=== PATIENT | male | born 2000 | race Caucasian/White ===

== ENCOUNTER 2023-12-25 14:36 | Emergency (ER) | payer OTHER, SELFPAY ==
--- NOTE | ~2023-12-25 | XR_ITS ---
EXAMINATION: XR CHEST 3:06 PM CLINICAL INFORMATION: Chest pain COMPARISON: None available. TECHNIQUE: Frontal view of the chest was obtained. FINDINGS: No significant abnormality is noted involving the heart, lungs, mediastinum, bony thorax or soft tissues. XR/XR chest 1V IMPRESSION: Unremarkable examination.
[2023-12-25 14:44] VITALS: BP 106/60; PULSE 58; O2SAT 99
[2023-12-25 14:56] VITALS: BP 107/60; BP 97/54; PULSE 48; PULSE 58; RESP 18; TEMP 36.7; O2SAT 98; O2SAT 99; BMI 18.4
[2023-12-25 15:04] VITALS: BP 97/54; PULSE 48; RESP 18; TEMP 36.7; O2SAT 98
--- NOTE | 2023-12-25 15:04 | ECG_ITS ---
Test Reason : LOW HEART RATE Blood Pressure : / mmHG Vent. Rate : 044 BPM Atrial Rate : 044 BPM P-R Int : 120 ms QRS Dur : 076 ms QT Int : 468 ms P-R-T Axes : 058 085 079 degrees QTc Int : 400 ms Marked sinus bradycardia Abnormal ECG No previous ECGs available Referred By: Bina Rodriguez Electronically Signed By:CELESTE QUINONES MD
--- NOTE | 2023-12-25 15:04 | PC.NURSE ---
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
[2023-12-25 15:14] VITALS: RESP 17
[2023-12-25] MEDS: fentaNYL citrate/PF 100 MCG/2 ML VIAL 25 MCG IVPUSH (15:14)
[2023-12-25] MEDS: droPERidol 5 MG/2 ML VIAL 1.25 MG IVPUSH (15:15)
[2023-12-25] MEDS: 0.9 % Sodium Chloride 1,000 ML 999 ML IV ×2 (15:16→15:17)
--- NOTE | 2023-12-25 15:31 | ED.NAVMDI ---
HPI - Nausea/Vomiting/Diarrhea General Chief complaint: Nausea/Vomiting/Diarrhea Stated complaint: ABD PAIN/VOMITING/CP PER EMS Time Seen by Provider: 12/25/23 15:05 Source: patient Mode of arrival: ambulatory Limitations: no limitations History of Present Illness ED Provider: JENIFFER CEJA Narrative: 23 yo male with 7 months of vomiting usually starts in AM has seen his PCP and been to [facility] ER (just yesterday) told that he was fine. Comes in today with c/o worst bout in 7 months he has vomited all AM. He does smoke THC daily and was not told to stop smoking. He notes hot showers and baths help him. He has not taken any meds other than tried pepcid this AM but it did not help MD elicited complaint: nausea, vomiting and abdominal pain Pertinent past history: cyclical vomiting Onset (ago): month(s) (7) Description of vomiting: food contents, watery and bilious Associated nausea: Yes Associated abdominal pain: Yes Location of pain: epigastric Radiation: diffuse Pain consistency: intermittent Severity: moderate Quality: aching Exacerbating factors: eating Relieving factors: none Context: marijuana use Associated symptoms: loss of appetite, malaise, nausea/vomiting, weakness and anxiety Related Data Previous Rx's ?Medication ?Instructions ?Recorded metoclopramide HCl 10 mg tablet 10 mg PO Q6H PRN nausea and 12/25/23 (Reglan) vomiting #30 tabs omeprazole 40 mg capsule,delayed 40 mg PO DAILY #14 caps 12/25/23 release Allergies Allergy/AdvReac Type Severity Reaction Status Date / Time No Known Allergies Allergy Verified 12/25/23 14:59 Review of Systems Review of Systems: Constitutional : No Weight loss, No Fever, No Chills ENT/Mouth : No sore throat, No Rhinorrhea Eyes: No Swelling, No Redness Cardiovascular : No Chest Pain, No SOB, NoEdema Respiratory : No Cough, No Sputum, No Wheezing Gastrointestinal : Positive Nausea, Positive Vomiting, no Diarrhea, positive abdominal Pain, No Hematochezia, No Melena Genitourinary : No Dysuria, No Urinary Frequency, No Hematuria, No Urgency Musculoskeletal : No joint pain, No Myalgias, No Joint Swelling Skin : No Skin Lesions, No rash Neuro : No Weakness, No Numbness, No Dizziness, No Headache Psych : No Anxiety/Panic, No Depression All other systems reviewed and are negative. Gastrointestinal: Gastrointestinal: Reports nausea PMFSH Past Medical History Attestation statement: The following information was validated with the patient. Source: old records reviewed Medical History Cyclical vomiting Social History Social History (Updated 12/25/23 @ 15:49 by Bina Rodriguez DO) Patient Tobacco Use Status: Never used Tobacco Substance Use Type: Marijuana Physical Exam Vital Signs: Vital Signs: Last Vital Signs Temp 98.1 F 12/25/23 15:04 Pulse 48 L 12/25/23 15:04 Resp 17 12/25/23 15:14 BP 97/54 L 12/25/23 15:04 Pulse Ox 98 12/25/23 15:04 O2 Del Method Room Air 12/25/23 15:04 BMI result Body Mass Index 18.4 Appearance: Alert. Oriented X3. active dry heaving mild acute distress. Eyes: Pupils equal, round and reactive to light. ENT: Pharynx dry MM Neck: Normal inspection. Neck supple. CVS: Normal heart rate and rhythm. Pulses normal. Respiratory: No respiratory distress. Breath sounds normal. Abdomen: Soft and mild epigastric ttp . Skin: Skin warm and dry. pale skin color. Normal skin turgor. Extremities: No lower extremity edema. Neuro: Oriented X 3. No motor deficit. No sensory deficit. Course Course Course Narrative: signed out to Dr. Fu pending PO challenge and improvement Medications Administered Generic Name Dose Route Start Last Admin Trade Name Freq PRN Reason Stop Dose Admin Sodium Chloride 1,000 mls @ 999 mls/hr 12/25/23 15:04 12/25/23 15:16 Ns IV 12/25/23 16:04 999 mls/hr .Q1H1M ONE Administration Sodium Chloride 1,000 mls @ 999 mls/hr 12/25/23 15:04 12/25/23 15:17 Ns IV 12/25/23 16:04 999 mls/hr .Q1H1M ONE Administration Discontinued Medications Generic Name Dose Route Start Last Admin Trade Name Freq PRN Reason Stop Dose Admin Droperidol 1.25 mg 12/25/23 15:04 12/25/23 15:15 Droperidol 5 Mg/2 Ml Vial IVPUSH 12/25/23 15:05 1.25 mg ONCE ONE Administration Fentanyl 25 mcg 12/25/23 15:04 12/25/23 15:14 Fentanyl Citrate/Pf 100 Mcg/2 Ml Vial IVPUSH 12/25/23 15:05 25 mcg ONCE ONE Administration Protocol Medical Decision Making Medical Decision Making [facility] Narrative: 23 yo male with PMH of THC use and cyclical vomiting for 7 months has not had full work up by GI or PCP at this time labs, IV pain medications, droperidol - given chronicity suspect cyclical vomiting syndrome related to THC use. He has no localized ttp Differential Diagnosis Differential Diagnoses: The differential diagnosis associated with the presentation includes gastritis, dehydration, cyclical vomiting syndrome Admission/Observation Consideration of admission/observation: Escalation of care including admission/observation considered Lab Data [facility] Lab Attestation statement: I reviewed the patient's lab results. Independent Historian Clinical information obtained from an independent historian. History obtained from or confirmed by: EMS Prescription Management I considered prescription management with: Other Discharge Plan Discharge Clinical Impression: Cyclical vomiting Patient Disposition: Still a Patient Instructions: Cyclic Vomiting Syndrome (ED) Additional Instructions: clear liquids for 24 hours then bland diet for 48 hours stay hydrated no NSAIDs but tylenol is okay return for any worsening symptoms follow up with GI doctor given symptoms and primary care for further workup stop smoking THC Prescriptions: New metoclopramide HCl [Reglan] 10 mg tablet 10 mg PO Q6H PRN (Reason: nausea and vomiting) Qty: 30 0RF omeprazole 40 mg capsule,delayed release(DR/EC) 40 mg PO DAILY Qty: 14 0RF Print Language: Eritrean
[2023-12-25 15:48] LABS: MANUAL DIFF FLAG NO
[2023-12-25 15:50] LABS: Basophils Absolute Auto 0.1 X10*3/uL (0.0-0.2); Basophils Percent Auto 0.6 % (0-2); Eosinophils Absolute Auto 0.1 X10*3/uL (0.0-0.4); Eosinophils Percent Auto 0.3 % (0-4); Hematocrit 39.9 % (42.0-52.0); Hemoglobin 13.8 g/dl (14.0-18.0); Imm Gran Abs Auto 0.06 X10*3/uL (0.00-0.03); Imm Gran Pct Auto 0.4 % (0.0-0.4); Lymphocytes Absolute Auto 1.3 X10*3/uL (1.2-4.9); Mean Corpuscular HGB Conc 34.6 g/dl (31.0-36.0); Mean Corpuscular Hemoglobin 30.7 pg (27.0-33.0); Mean Corpuscular Volume 88.9 fL (80.0-98.0); Mean Platelet Volume 9.3 fL (9.4-12.4); Monocytes Absolute Auto 0.9 X10*3/uL (0.1-1.2); Monocytes Percent Auto 6.1 % (2-11); Neutrophils Absolute Auto 12.1 x10*3/uL (2.0-8.3); Neutrophils Percent Auto 83.6 % (45-73); Platelet Count 146 X10*3/uL (160-400); Red Blood Count 4.49 X10*6/uL (4.60-5.80); Red Cell Distribution Width 13.6 % (11.0-16.0); White Blood Count 14.5 X10*3/uL (4.8-10.8)
[2023-12-25 16:04] LABS: Alanine Aminotransferase 24 U/L (0-40); Albumin Level 4.1 g/dL (3.5-5.0); Alkaline Phosphatase 59 U/L (39-117); Anion Gap 13 (12-20); Aspartate Amino Transferase 23 U/L (5-37); Bilirubin Direct 0.5 mg/dL (0.0-0.5); Bilirubin Total 1.1 mg/dL (0.0-1.0); Blood Urea Nitrogen 13 mg/dL (9-16); Calcium 8.4 mg/dL (8.4-10.2); Carbon Dioxide 19 mmol/L (22-29); Chloride 115 mmol/L (96-108); Creatinine Clr Calc Pharmacy 92.1; Estimated Glomerular Filt Rate > 60; Glucose Random 113 mg/dL (60-115); Lipase 24 U/L (8-78); Magnesium 1.6 mg/dL (1.6-2.6); Potassium 4.1 mmol/L (3.3-5.1); Sodium 143 mmol/L (135-145)
--- NOTE | 2023-12-25 16:24 | PC.NURSE ---
Pt. states that he is planning on leaving to go to [facility], because we aren't doing anything differently than he already had done at [facility] yesterday. MD Rodriguez aware.
[2023-12-25 16:57] VITALS: BP 97/54; PULSE 48; RESP 17; TEMP 36.7; O2SAT 98
== END 2023-12-25 16:57 | disposition left against medical advice (07) ==
PROVIDERS: Emergency Medicine; Emergency Provider Emergency Medicine
DX: R11.15 Cyclical vomiting syndrome unrelated to migraine (principal); F12.90 Cannabis use, unspecified, uncomplicated; R07.9 Chest pain, unspecified
CPT/HCPCS: 36415; 71045; 80048; 80076; 83690; 83735; 85025; 93005; 96361; 96374; 96375; 99284; J1790; J3010

== ENCOUNTER → 2023-12-25 15:04 | Outpatient (BNV) | payer OTHER, SELFPAY | PROVIDERS: Emergency Provider Emergency Medicine; Visit Provider Internal Medicine Cardiovascular Disease | DX: R00.1 Bradycardia, unspecified (principal) | CPT/HCPCS: 93010 ==

== ENCOUNTER 2024-09-15 17:15 | Emergency (ER) | payer OTHER, SELFPAY ==
--- NOTE | ~2024-09-15 | XR_ITS ---
CLINICAL HISTORY: trauma 4 view, chest and left ribs Comparison: CR/MA/SR - XR CHEST 1V - 12/25/23 15:06 EDT Findings: There is a cortical defect in left rib 9anteriorly. No focal pulmonary opacity. No pleural effusion or pneumothorax. Normal heart size. IMPRESSION: Nondisplaced fracture in the 9th left rib. No pneumothorax. This document has been electronically signed by: Fernanda Zayas DO on 09/15/2024 18:46:16
[2024-09-15 17:36] VITALS: BP 99/61; PULSE 74; RESP 18; TEMP 36.8; O2SAT 100; BMI 19.4
--- NOTE | 2024-09-15 17:38 | ED_ITS ---
HPI - General Adult General Chief complaint: General Medical Stated complaint: LT side rib pain Time Seen by Provider: 09/15/24 18:50 Source: patient Limitations: no limitations History of Present Illness ED Provider: Renetta Weiner PA-C HPI narrative: 24-year-old male who presents with left -sided rib pain x5 days. Patient states he was trying to put together his daughter's bed, he subsequently fell onto the metal frame landing on his left side. Related Data Previous Rx's ?Medication ?Instructions ?Recorded metoclopramide HCl 10 mg tablet 10 mg PO Q6H PRN nausea and 12/25/23 (Reglan) vomiting #30 tabs omeprazole 40 mg capsule,delayed 40 mg PO DAILY #14 caps 12/25/23 release ketorolac 10 mg tablet 10 mg PO Q6H PRN pain #20 tabs 09/15/24 methocarbamol 750 mg tablet 750 mg PO Q8H PRN pain, moderate 09/15/24 #15 tabs oxycodone 5 mg tablet 5 mg PO Q6H PRN pain #16 tabs 09/15/24 Allergies Allergy/AdvReac Type Severity Reaction Status Date / Time No Known Allergies Allergy Verified 09/15/24 17:39 Review of Systems Review of Systems: Yes all other systems are reviewed and are negative Constitutional: Constitutional: Denies fatigue and Denies fever(s) Cardiovascular: Cardiovascular: Reports chest pain and Denies dyspnea Respiratory: Respiratory: Denies chest congestion, Denies cough and Denies dyspnea Endocrine: Endocrine: Denies fatigue PMF Past Medical History Attestation statement: The following information was validated with the patient. Medical History Cyclical vomiting Social History Social History (Updated 12/25/23 @ 15:49 by Bina Rodriguez DO) Patient Tobacco Use Status: Never used Tobacco Substance Use Type: Marijuana Advance Directives: No Advance Directives Information Provided: No Physical Exam ED Vital Signs: Vital Signs - 24 hr 09/15/24 17:36 Temperature 98.3 F Pulse Rate 74 Respiratory Rate 18 Blood Pressure 99/61 Pulse Oximetry 100 Oxygen Delivery Method Room Air BMI result Body Mass Index 19.4 Const Other: Alert well-appearing Orientation/consciousness: patient oriented x3 Chest Other: Tenderness along left chest wall Resp Other: Splinting with inspiration, breath sounds equal Skin Other: Warm dry no rash Neuro General: patient oriented x3, gait normal, no focal motor deficits and CN's II- XI intact bilaterally Psych Other: Cooperative Course Course Course Narrative: This is a rapid medical exam performed by Renetta Weiner PA-C. The patient is a 24-year-old male who presents with left-sided rib pain x5 days. Patient states he was trying to put together his daughter's bed, he subsequently fell onto the metal frame landing on his left side. On exam patient was splinting w ith inspiration, his oxygen is 100% on room air. We will order rib fracture protocol x-ray. The patient is stable and can return to the waiting room pending his full medical assessment. Medical Decision Making Medical Decision Making MDM Narrative: 24-year-old male who presents with left -sided rib pain x5 days. Patient states he was trying to put together his daughter's bed, he subsequently fell onto the metal frame landing on his left side. No chronic issues History: Per patient I have considered the following differential diagnoses: Hemothorax, pneumothorax, rib fracture, chest wall contusion Plan: X-ray ordered he has an isolated 9th rib fracture that is nondisplaced. We will send with home care instructions including the use of incentive spirometry. I have independently reviewed the following tests: X-ray left rib protocol:Findings: There is a cortical defect in left rib 9anteriorly. No focal pulmonary opacity. No pleural effusion or pneumothorax. Normal heart size. IMPRESSION: Nondisplaced fracture in the 9th left rib. No pneumothorax. Discharge Plan Discharge Clinical Impression: Left rib fracture Patient Disposition: Home, Self-Care Instructions: How to Use an Incentive Spirometer (ED), Rib Fracture (ED) Additional Instructions: You sustained a rib fracture of the 9th rib on the left. See home care instructions. Use the ketorolac as directed this is an anti-inflammatory, take it with food. Use the methocarbamol as needed for further pain. To note this is a muscle relaxant, it will cause drowsiness, do not drive or operate damon andreea while taking the medication. Lastly, take the oxycodone as needed for further pain. This is an opiate, it can be habit-forming, use it as needed. This medication can also be constipating, you should take lmzw-ova-fianzsw Colace this is a stool softener with pvjx-dyf-hhuwzla MiraLax, daily, to help prevent constipation. Most importantly, use the incentive spirometry several times a day as directed. Follow up with your primary care provider as needed. Prescriptions: New ketorolac 10 mg tablet 10 mg PO Q6H PRN (Reason: pain) Qty: 20 0RF Rx Instructions: maximum total duration of 5 days from all oral, intranasal, or parenteral formulations. The patient received an intramuscular dose of Toradol here in the emergency department. methocarbamol 750 mg tablet 750 mg PO Q8H PRN (Reason: pain, moderate) Qty: 15 0RF oxycodone 5 mg tablet 5 mg PO Q6H MDD 20 PRN (Reason: pain) Qty: 16 0RF Rx Instructions: Partial Fill upon patient request. No Action metoclopramide HCl [Reglan] 10 mg tablet 10 mg PO Q6H PRN (Reason: nausea and vomiting) Qty: 30 0RF omeprazole 40 mg capsule,delayed release(DR/EC) 40 mg PO DAILY Qty: 14 0RF Print Language: Ukrainian
[2024-09-15] MEDS: Ketorolac Tromethamine 15 MG/ML VIAL IM (19:40)
[2024-09-15] MEDS: oxyCODONE HCl Immed Release 5 MG TABLET PO (19:44)
[2024-09-15] MEDS: methocarbamoL 750 MG TABLET PO (19:45)
== END 2024-09-15 19:52 | disposition home or self-care (01) ==
PROVIDERS: Emergency Provider Emergency Medicine
DX: S22.32XA Fracture of one rib, left side, initial encounter for closed fracture (principal); R07.81 Pleurodynia; W01.190A Fall on same level from slipping, tripping and stumbling with subsequent striking against furniture, initial encounter; Y93.9 Activity, unspecified; Y92.003 Bedroom of unspecified non-institutional (private) residence as the place of occurrence of the external cause; Y99.8 Other external cause status
CPT/HCPCS: 71101; 94010; 96372; 99282; 99284; J1885

== ENCOUNTER → 2024-09-15 18:03 | Outpatient (BNV) | payer OTHER, SELFPAY | PROVIDERS: Visit Provider Radiology Diagnostic Radiology | DX: S22.32XA Fracture of one rib, left side, initial encounter for closed fracture (principal) | CPT/HCPCS: 71101 ==

== ENCOUNTER 2025-02-11 16:32 | Emergency (ER) | payer OTHER, SELFPAY ==
--- NOTE | ~2025-02-11 | XR_ITS ---
EXAMINATION: XR HAND, RIGHT CLINICAL INFORMATION: injury, pain COMPARISON: None available. TECHNIQUE: PA, lateral, and oblique views of the right hand. FINDINGS: Normal alignment. No acute fracture. No erosions. Joint spaces are preserved. No radiopaque foreign body. XR/XR hand RT min 3V IMPRESSION: No acute fracture. Electronically signed by: Ace Dobbins MD 02/11/2025 05:01 PM EDT
[2025-02-11 16:41] VITALS: BP 101/65; PULSE 85; RESP 18; TEMP 36.6; O2SAT 98; BMI 19.9
--- NOTE | 2025-02-11 16:42 | ED_ITS ---
HPI - Extremity Injury (Upper) General Chief Complaint: Extremity Injury, Upper Stated Complaint: R hand injury Time Seen by Provider: 02/11/25 17:19 Source: patient Mode of arrival: ambulatory Limitations: no limitations History of Present Illness ED Provider: Gabriela Epps APRN HPI narrative: 24-year-old male who is right-hand dominant presents the ER with complaint of right hand pain after punching an object. No associated weakness, numbness or tingling of the extremity. Related Data Previous Rx's ?Medication ?Instructions ?Recorded metoclopramide HCl 10 mg tablet 10 mg PO Q6H PRN nause a and 12/25/23 (Reglan) vomiting #30 tabs omeprazole 40 mg capsule,delayed 40 mg PO DAILY #14 ca ps 12/25/23 release ketorolac 10 mg tablet 10 mg PO Q6H PRN pain #20 ta bs 09/15/24 methocarbamol 750 mg tablet 750 mg PO Q8H PRN pain, mo derate 09/15/24 #15 tabs oxycodone 5 mg tablet 5 mg PO Q6H PRN pain #16 tab s 09/15/24 Allergies Allergy/AdvReac Type Severity Reaction Status Date / Time No Known Allergies Allergy Verified 02/11/25 16:42 Review of Systems Review of Systems: Yes all other systems are reviewed and are negative Constitutional: Constitutional: Reports no additional constitutional complaints, Denies body ache(s), Denies chills, Denies fever(s), Denies headache(s) and Denies weakness Eyes: Eyes: Reports no additional eye complaints and Denies change in vision ENT: Reports system reviewed and no additional complaints, except as docum ented, Denies dizziness, Denies headache(s), Denies nasal congestion, Denies nasal discharge and Denies neck pain Cardiovascular: Cardiovascular: Reports no additional cardiovascular complaints, Denies chest pain, Denies leg edema and Denies dyspnea Respiratory: Respiratory: Reports no additional respiratory complaints, Denies cough and Denies dyspnea Gastrointestinal: Gastrointestinal: Reports no additional gastrointestinal complaints, Denies abdominal pain, Denies diarrhea, Denies nausea and Denies vomiting Genitourinary: Genitourinary: Denies urinary incontinence Musculoskeletal: Musculoskeletal: Reports no additional musculoskeletal complaints, Denies back pain, Reports arthralgias, Denies joint swelling, Denies neck pain, Denies numbness and Denies tingling Integumentary/Breasts: Skin/Breast: Reports system reviewed and no additional complaints, except as docu and Denies rash Neurologic: Reports system reviewed and no additional complaints, except as documented, Denies Abnormal speech present, Denies dizziness, Denies headach e(s), Denies numbness, Denies tingling and Denies weakness PMFSH Past Medical History Attestation statement: The following information was validated with the patient. Source: old records reviewed and nursing notes reviewed Medical History Cyclical vomiting Social History Social History Patient Tobacco Use Status: Never used Tobacco Substance Use Type: Marijuana Advance Directives: No Advance Directives Information Provided: No Do you have a plan to hurt others: No Plan Physical Exam Vital Signs: Vital Signs: Last Vital Signs Temp 98 F 02/11/25 16:41 Pulse 85 02/11/25 16:41 Resp 18 02/11/25 16:41 BP 101/65 02/11/25 16:41 Pulse Ox 98 02/11/25 16:41 O2 Del Method Room Air 02/11/25 16:41 BMI result Body Mass Index 19.9 Const: General: cooperative, healthy appearing, comfortable and no acute distress Orientation/consciousness: patient oriented x3 Limitations: no limitations HEENT: Head: Yes normal to inspection Ears: hearing grossly normal bilaterally General nose exam: Normal external nose present Face and sinus: Yes normal facial exam Mouth: Normal oral and palatal mucosa present Throat: Yes posterior oropharynx normal Eyes: General: appearance normal, both eyes and all related structures Pupils: Equal, round and reactive pupils present Neck: Neck: Yes normal visual inspection Chest: Chest palpation & inspection: normal inspection of the chest Resp: Effort & Inspection: normal respiratory effort Auscultation: clear to auscultation bilaterally Cardio: Rate: regular rate Rhythm: regular rhythm Peripheral pulses: Peripheral pulses 2+ throughout GI: Inspection: Yes normal to inspection Palpation (GI): Soft to palpation and nontender Auscultation: normal bowel sounds Back/Spine/Pelvis: Thoracic/Lumbar Spine: thoracic and lumbar spine normal to inspection Skin: General skin exam: no rashes or lesions noted Neuro: General: patient oriented x3, no focal motor deficits and normal sensation to monofilament Cranial nerves: Yes Equal, round and reactive pupils present Cognition (Neuro): normal cognition Speech: No Abnormal speech present Gait exam (Neuro): Normal gait present Motor exam (neuro): 5/5 motor strength present throughout Extrem: Other: I do not appreciate any swelling. There is no warmth or redness. There is full active and passive range of motion of the right wrist, hand and digits. There are 2+ DP and PT pulses. There is normal sensation. There is no palpable tenderness. 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 Defer additional HPI, ROS, PE to primary provider. 24-year-old male who is right-hand dominant presents the ER with complaint of right hand pain after punching an object. Will check x-rays Vitals stable Medical Decision Making Medical Decision Making MDM Narrative: 24-year-old male who is right-hand dominant presents the ER with complaint of right hand pain after punching an object. No associated weakness, numbness or tingling of the extremity. I do not appreciate any swelling. There is no warmth or redness. There is full active and passive range of motion of the right wrist, hand and digits. There are 2+ DP and PT pulses. There is normal sensation. There is no palpable tend erness. Will obtain x-rays to rule out fracture Differential Diagnosis Differential Diagnoses: The differential diagnosis associated with the presentation includes Fracture, contusion, sprain, strain Low suspicion for dislocation, complex fracture, vascular injury Admission/Observation Consideration of admission/observation: Escalation of care including admission/observation considered low suspicion for dislocation, complex fracture, vascular injury requiring advanced imaging, urgent orthopedic consultation and or admission Independent Interpretation I performed an independent interpretation of an: Plain X-Ray Interpretation: I independently viewed the x-ray and agree with the radiology report Radiology Impression Discussion of test interpretation with radiology: I have reviewed the radiologist's reading. Radiologist Impression: [address] [address] XRay Report Signed Patient: Leland Mai Jr. MR#: [id number] : 2000 Acct:[id number] Age/Sex: 24 / M ADM Date: 02/11/25 Loc: HO.ED Attending Dr: Ordering Physician: Gabriela Epps NP Date of Service: 02/11/25 Procedure(s): XR hand RT min 3V Accession Number(s): [id number] cc: Gabriela Epps NP; Physician,Unknown ~ EXAMINATION: XR HAND, RIGHT CLINICAL INFORMATION: injury, pain COMPARISON: None available. TECHNIQUE: PA, lateral, and oblique views of the right hand. FINDINGS: Normal alignment. No acute fracture. No erosions. Joint spaces are preserved. No radiopaque foreign body. XR/XR hand RT min 3V IMPRESSION: No acute fracture. Electronically signed by: Ace Dobbins MD 02/11/2025 05:01 PM EDT RP Workstation: [employer] Tests considered The following testing was considered but not selected: low suspicion for dislocation, complex fracture, vascular injury requiring advanced imaging, Prescription Management I considered prescription management with: Pain Medication Procedures Orthopedic Splinting/Casting Injury #1: Side: right Upper Extremity Injury Location: wrist Upper Extremity Immobilizer: wrist splint Discharge Plan Discharge Clinical Impression: Contusion of hand, right Patient Disposition: Home, Self-Care Instructions: Contusion in Adults (ED) Additional Instructions: Ice to the area Use a splint for comfort as needed Take Motrin 3 times daily for pain as needed See your primary care doctor for any continued symptoms greater than 7 days Prescriptions: No Action ketorolac 10 mg tablet 10 mg PO Q6H PRN (Reason: pain) Qty: 20 0RF Rx Instructions: maximum total duration of 5 days from all oral, intranasal, or parenteral formulations. The patient received an intramuscular dose of Toradol here in the emergency department. methocarbamol 750 mg tablet 750 mg PO Q8H PRN (Reason: pain, moderate) Qty: 15 0RF oxycodone 5 mg tablet 5 mg PO Q6H MDD 20 PRN (Reason: pain) Qty: 16 0RF Rx Instructions: Partial Fill upon patient request. metoclopramide HCl [Reglan] 10 mg tablet 10 mg PO Q6H PRN (Reason: nausea and vomiting) Qty: 30 0RF omeprazole 40 mg capsule,delayed release(DR/EC) 40 mg PO DAILY Qty: 14 0RF Referrals: Catalina Badillo MD [Primary Care Provider, Internal Medicine] Print Language: Gambian
[2025-02-11 18:07] VITALS: BP 101/65; PULSE 85; RESP 18; TEMP 36.6; O2SAT 98
--- NOTE | 2025-02-11 18:07 | PC.NURSE ---
wrist brace applied and paperwork completed and signed by pt
== END 2025-02-11 18:09 | disposition home or self-care (01) ==
PROVIDERS: Emergency Provider Emergency Medicine; PCP Internal Medicine
DX: M79.641 Pain in right hand (principal)
CPT/HCPCS: 73130; 99282; 99283

== ENCOUNTER → 2025-02-11 16:42 | Outpatient (BNV) | payer OTHER, SELFPAY | PROVIDERS: Emergency Provider Emergency Medicine; PCP Internal Medicine; Visit Provider Radiology Body Imaging | DX: S69.91XA Unspecified injury of right wrist, hand and finger(s), initial encounter (principal); M79.641 Pain in right hand | CPT/HCPCS: 73130 ==